=== PATIENT | male | born 1975 | race Caucasian/White ===

== ENCOUNTER → 2020-10-31 | Outpatient (CLI) | payer OTHER | LOC: M.PC 08:43 | PROVIDERS: ATTEND Physical Medicine & Rehabilitation | DX: M50.10 Cervical disc disorder with radiculopathy, unspecified cervical region (principal); M47.22 Other spondylosis with radiculopathy, cervical region; M19.011 Primary osteoarthritis, right shoulder; M47.24 Other spondylosis with radiculopathy, thoracic region; Z79.891 Long term (current) use of opiate analgesic; Z79.899 Other long term (current) drug therapy ==

== ENCOUNTER → 2020-11-21 | Outpatient (CLI) | payer OTHER ==
[~2020-11-21] MED LIST: ALLERCLEAR10 MG PO; CELEXA 20 MG TA20 MG PO; COZAAR 25 MG TA25 M1 PO; GLYBURIDE 5 MG T5 M1 PO; GLYXAMBI 10 MG1 EACH PO; LEVO-T100 MCG PO; LIPITOR 20 MG T20 M1 PO; MEN'S MULTIVIT1 EACH PO; NORVASC5 MG PO; PROBIOTIC1 EAC7 PO; PROTONIX40 M4 PO
== END ==
LOC: M.PC 08:49
PROVIDERS: ATTEND Physical Medicine & Rehabilitation
DX: M50.123 Cervical disc disorder at C6-C7 level with radiculopathy (principal); M47.22 Other spondylosis with radiculopathy, cervical region; M48.02 Spinal stenosis, cervical region; Z79.899 Other long term (current) drug therapy; Z79.891 Long term (current) use of opiate analgesic

== ENCOUNTER → 2020-11-28 | Outpatient (CLI) | payer OTHER | END | disposition home or self-care (01) | LOC: M.PC 11-26 11:00 | PROVIDERS: ATTEND Physical Medicine & Rehabilitation | DX: M50.10 Cervical disc disorder with radiculopathy, unspecified cervical region (principal); M47.22 Other spondylosis with radiculopathy, cervical region; M48.061 Spinal stenosis, lumbar region without neurogenic claudication; M19.011 Primary osteoarthritis, right shoulder; I10 Essential (primary) hypertension; E11.9 Type 2 diabetes mellitus without complications; Z98.890 Other specified postprocedural states; Z79.899 Other long term (current) drug therapy ==

== ENCOUNTER → 2020-12-12 | Outpatient (CLI) | payer OTHER ==
[~2020-12-12] MED LIST changes: +NEURONTIN100 MG PO
== END ==
LOC: M.PC 10:25
PROVIDERS: ATTEND Physical Medicine & Rehabilitation
DX: M50.123 Cervical disc disorder at C6-C7 level with radiculopathy (principal); M48.02 Spinal stenosis, cervical region; M47.22 Other spondylosis with radiculopathy, cervical region